=== PATIENT | male | born 1970 ===

== ENCOUNTER 2016-12-19 13:20 | Emergency (ER) | payer BC ==
[2016-12-19 13:37] VITALS: BP 117/83; PULSE 97; TEMP 98.3; BMI 24.1
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
== END 2016-12-19 14:23 | disposition home or self-care (01) ==
LOC: FER 13:20
DX: S61.212A Laceration without foreign body of right middle finger without damage to nail, initial encounter (principal); X58.XXXA Exposure to other specified factors, initial encounter; Y93.89 Activity, other specified; Y92.89 Other specified places as the place of occurrence of the external cause
CPT/HCPCS: 73140-TC-RT; 99282-25